=== PATIENT | female | born 1975 | race Caucasian/White ===

== ENCOUNTER 2018-10-02 17:58 | Emergency (ER) | payer MEDICAID ==
[~2018-10-02] VITALS: Ht 162.6 cm; Wt 67.8 kg
[2018-10-02 18:01] VITALS: BP 120/77
[2018-10-02] MEDS ORDERED: FAMOTIDINE 20 MG TAB PO ONE (18:25)
[2018-10-02] MEDS ORDERED: diphenhydrAMINE 50 MG/ML VIAL IM ONE (18:25)
[2018-10-02] MEDS ORDERED: hydrOXYzine HCL 25 MG TAB PO ONE (18:25)
[2018-10-02] MEDS ORDERED: DEXAMETHASONE 10 MG/ML VIAL IM ONE (18:25)
--- NOTE | 2018-10-02 18:30 | NUR ---
C/O ITCHY RASH X1 DAY. RAISED RED PATCHES OVER PT CHEST, ARMS LEGS, NECK, AND BACK. NO FACIAL SWELLING, AIRWAY PATENT, RR EVEN, NON LABORED. TX W/ BENADRYL W/ SOME RELIEF. CORSE BREATH SOUNDS ON INSPIRATION. MEDHX:DENIES RX:BENADRYL
[2018-10-02 19:05] VITALS: BP 120/77
--- NOTE | 2018-10-02 19:05 | NUR ---
Patient discharged with v/s stable. Written and verbal after care instructions given and explained. Patient alert, oriented and verbalized understanding of instructions. Ambulatory with steady gait. All questions addressed prior to discharge. ID band removed. Patient advised to follow up with PMD. Rx of ATARAX AND PREDNISONE given. Patient educated on indication of medication including possible reaction and side effects. Opportunity to ask questions provided and answered.
== END 2018-10-02 19:05 | disposition home or self-care (01) ==
LOC: MED 17:58
DX: L50.0 Allergic urticaria (principal)
CPT/HCPCS: 96372; 99283; J1100; J1200

== ENCOUNTER 2019-05-22 12:53 | Emergency (ER) | payer MEDICAID ==
[~2019-05-22] VITALS: Ht 162.6 cm; Wt 67.8 kg
[2019-05-22 12:58] VITALS: BP 117/67
--- NOTE | 2019-05-22 13:04 | NUR ---
Patient ambulated to bed 4. RN evaluating patient at bedside.
--- NOTE | 2019-05-22 13:05 | NUR ---
PT C/O ROOM-SPINING DIZZINESS, INTERMITTENT THROBBING OCCIPITAL GARDNER, AND NAUSEA SINCE THIS MORNING AND LOWER ABDOMINAL PAIN RADIATING TO LOWER BACK X 2 DAYS. DENIES, COUGH, FEVER, CP, UTI SX, OR HEMATURIA. TOOK TYLENOL @7PM. PATIENT STATES PAIN OF 10/10 AT THIS TIME; VSS; PATIENT POSITIONED FOR COMFORT; HOB ELEVATED; BEDRAILS UP X1; BED DOWN. ER MD MADE AWARE OF PT STATUS.
[2019-05-22] MEDS ORDERED: KETOROLAC 60 MG/2 ML VIAL IM ONE (14:00)
--- NOTE | 2019-05-22 14:32 | NUR ---
PT IS RESTING IN THE BED W/ VSS.
[2019-05-22 15:06] VITALS: BP 122/61
--- NOTE | 2019-05-22 15:06 | NUR ---
Patient discharged with v/s stable. Written and verbal after care instructions given and explained. Patient alert, oriented and verbalized understanding of instructions. Ambulated with steady gait. All questions addressed prior to discharge. ID band removed. Patient advised to follow up with PMD. Rx of Zofran, Motrin, and Meclizine given. Patient educated on indication of medication including possible reaction and side effects. Opportunity to ask questions provided and answered.
== END 2019-05-22 15:06 | disposition home or self-care (01) ==
LOC: MED 12:53
DX: R42 Dizziness and giddiness (principal); R10.13 Epigastric pain
CPT/HCPCS: 81002; 81025; 96372; 99283; J1885